=== PATIENT | female | born 1985 | race Caucasian/White ===

== ENCOUNTER 2017-04-21 01:23 | Inpatient (IN) | payer MEDICAID ==
[~2017-04-21] VITALS: Ht 162.6 cm; Wt 75.9 kg
--- NOTE | 2017-04-21 01:34 | NUR ---
RESP EVEN AND UNLABORED, DENIES CP, SENT TO LOBBY AWAITING ROOM.
--- NOTE | 2017-04-21 01:39 | NUR ---
PT PRESENTS TO THE ED WITH A C/O LLQ ABD PAIN X5 DAYS WITH ACCOMPANIED N/V. REPORTS THE PAIN IS 9/10 AND RADIATES TO THE L FLANK. DENIES ANY CONSTIPATION OR DIARRHEA AND OR DYSURIA. PT REPORTS A SUBJECTIVE FEVER AT HOME INTERMITTENTLY THAT IS CONTROLLED WITH MOTRIN, AFEBRILE AT THIS TIME. PAIN INCREASES WITH PALPATION AND AMBULATING. PT DENIES ANY CP, SOB, NO ACUTE DISTRESS NOTED AT THIS TIME. AWAITING MSE.
[2017-04-21 02:38] LABS: CALCIUM 8.8 mg/dL (8.5-10.1); CARBON DIOXIDE 26.9 mmol/L (21-32); CHLORIDE SERUM 102 mmol/L (98-107); CREATININE SERUM 0.8 mg/dL (0.6-1.0); GFR1 > 60 mL/min; GLUCOSE SERUM 102 mg/dL (74-106); POTASSIUM SERUM 3.5 mmol/L (3.5-5.1); SODIUM SERUM 136 mmol/L (136-145)
[2017-04-21 02:40] LABS: BASOPHIL % 1.2 % (0-2); PLATELET COUNT 266 x10^3mcL (130-400)
[2017-04-21 02:43] LABS: ALBUMIN 3.7 g/dL (3.4-5.0); ALKALINE PHOSPHATASE 104 U/L (46-116); ALT/SGPT 43 U/L (14-59); AST/SGOT 43 U/L (15-37); BILIRUBIN TOTAL 0.72 mg/dL (0.20-1.00); LIPASE 136 IU/L (73-393)
[2017-04-21 02:44] LABS: TOTAL PROTEIN, SERUM 8.3 g/dL (6.4-8.2)
--- NOTE | 2017-04-21 03:02 | NUR ---
RETURNED FROM CT. PT STABLE. VSS. ASSUMED CARE FROM NIRU GLEASON. KRANTHI.
[2017-04-21 03:31] LABS: UA SPECIFIC GRAVITY <=1.005 (1.005-1.035); microscopic required? YES; urine erythrocyte 1+ (NEGATIVE)
--- NOTE | 2017-04-21 03:46 | NUR ---
IV ABX INITIATED. NO ADR. PREP FOR ADMISSION. ANALGESIA GIVEN.
--- NOTE | 2017-04-21 04:05 | NUR ---
ADMITTING MD AT BS. PT W/SUDDEN ONSET NAUSEA AND VOMITING W/ PAIN TO ABDOMEN. WHILE DR. SMITH AT BS, PT W/ MARKED NAUSEA AND VOMITING W/ INCREASE IN ABD PAIN. PENDING ADMIT. PREP FOR ADMISSION. NASAL SWAB OBTAINED. TO MEDICATE FOR NAUSEA AND PAIN PRIOR TO ADMIT.
[2017-04-21 04:29] LABS: AMPHETAMINE QUAL UR NONE DETECTED (NEG <=1000)
[2017-04-21 04:31] LABS: FREE T4 0.96 ng/dL (0.76-1.46); FREE THYROXINE INDEX 2.6 ug/dL (1.4-4.5); T4(THYROXINE) 7.8 ug/dL (4.7-13.3)
[2017-04-21 04:32] LABS: PHOSPHOROUS 3.8 mg/dL (2.5-4.9); T3 TOTAL 0.96 ng/mL
[2017-04-21 04:33] LABS: MAGNESIUM 1.8 mg/dL (1.8-2.4)
[2017-04-21 05:02] VITALS: BP 102/61
--- NOTE | 2017-04-21 05:11 | NUR ---
RECIEVED PT FROM ER VIA [facility]. TELE #40, NSR. FAMILY MEMBER AT BEDSIDE. AOX4. [place] SPEAKING. LUNGS CLEAR AND UNLABORED ON RA. PULSES PALPABLE, NO EDEMA. BOWEL SOUNDS ACTIVE. DENIES PAIN AT THIS TIME. NS @ 100 ML/HR TO LEFT FA, NO REDNESS OR SWELLING. BED IN LOW POSITION, CALL LIGHT IN REACH. INSTRUCTED TO CALL FOR ASSISTANCE. WILL ENDORSE TO ONCOMING RN.
[2017-04-21 05:45] VITALS: BP 102/61; BP 125/64
--- NOTE | 2017-04-21 07:15 | NUR ---
PT WS ENDORSE TO ME THIS MORNING .AA/O X4, TELE 40 NSR. HR 64. LUXEMBOURGER SPK. BREATHING EVEN AND UNLABORED. NO RESP DISTRESS OR SOB NOTED. C/O N/V, MEDICATED PER EMAR. CALL LIGHT IN REACH. WILL CONTINUE PLAN OF CARE.
--- NOTE | 2017-04-21 09:02 | NUR ---
HEPLOCKED PT. CK LIST DONE. WAS TAKEN TO OR FOR PROCEDURE. PT BREATHING EVEN AND UNLABORED. NO RESP DISTRESS OR SOB NOTED.
[2017-04-21 09:39] VITALS: BP 107/63
--- NOTE | 2017-04-21 11:44 | NUR ---
PT BACK FROM OR. VS STABLE. BREATHING EVEN AND UNLABORED, NO RESP DISTRESS OR SOB NOTED. THREE BANDAIDS TO MIDDLE ABD, INTACT. ADVICE PT TO USE PILLOW WHEN SHE NEEDS TO COUGH. RECONNECTED IV LAC. PATENT AND INTACT. PT BY HER SIDE. CALLL LIGHT IN REACH. WILL CONTINUE PLAN OF CARE.
--- NOTE | 2017-04-21 12:35 | NUR ---
PT IS RESTING VERY COMFORTABLE. DENIES ANY ABD PAIN OR N/V AT THIS TIME. CALL LIGHT IN REACH. BY HER SIDE. WILL CONTINUE TO MONITOR PT PAIN .
[2017-04-21 13:51] VITALS: BP 111/63
--- NOTE | 2017-04-21 15:04 | NUR ---
PT C/O ABD PAIN 03/01. MEDICATED PER EMAR.
[2017-04-21 17:06] VITALS: BP 106/62
--- NOTE | 2017-04-21 17:36 | NUR ---
PT IS SITTING UP IN BED. DENIES ANY ABD PAIN AT THIS TIME. PT DID TOLERATED ONE CUP OF APPLE JUICE AND ONE CUP OF JELLO. DID ENCOURAGE PT TO TRY TO AMBULATE TOLERATED. PT AGREED SHE SOULD TRY. CALL LIGHT IN REACH. WILL CONTINUE PLAN OF CARE.
--- NOTE | 2017-04-21 18:32 | NUR ---
PT IS LAYING IN BED BREATHING EVEN AND UNLABORED. NO RESP DISTRESS OR SOB NOTED. PT IS C/O SOME ABD PAIN, WILL MEDICATED PER EMAR. IV TO THE LAC INTACT AND PATENT. WILL ENDORSE PT TO INCOMING RN.
--- NOTE | 2017-04-21 20:03 | NUR ---
PT CURRENTLY RESTING IN BED, NO ACUTE DISTRESS. A/O X4. TELE #40 SHOWING SINUS RHYTHM, DENIES CHEST PAIN. PULSES PALPABLE IN ALL EXTREMITIES, NO EDEMA NOTED. LUNG SOUNDS CTA BILATERALLY, DENIES SOB. BOWEL SOUNDS ACTIVE, LAST BM 04/20/17. VOIDING WELL. AMBULATORY. ABD BANDAID X3, CDI. DENIES PAIN AT THIS TIME. IV PATENT AND INTACT. BED IN LOWEST POSITION, SIDE RAILS UP X2, SCDS IN PLACE, CALL LIGHT WITHIN REACH. WILL CONTINUE TO MONITOR.
[2017-04-21 21:14] VITALS: BP 97/57
--- NOTE | 2017-04-21 23:54 | NUR ---
PT CURRENTLY RESTING IN BED, NO ACUTE DISTRESS. WILL CONTINUE TO MONITOR.
--- NOTE | 2017-04-22 05:41 | NUR ---
PT SLEPT PERIODICALLY THROUGHOUT NIGHT, NO ACUTE DISTRESS. ALL NEEDS MET AND ATTENDED TO. NO SIGNIFICANT CHANGES. IV PATENT AND INTACT. MEDICATED PAIN PER EMAR. BED IN LOWEST POSITION, SIDE RAILS UP X2, SCDS IN PLACE, CALL LIGHT WITHIN REACH. WILL ENDORSE CARE TO ONCOMING NURSE.
[2017-04-22 06:02] VITALS: BP 95/56
[2017-04-22 06:04] LABS: BASOPHIL % 0.2 % (0-2); PLATELET COUNT 235 x10^3mcL (130-400); RED CELL DISTRIBUTION WIDTH 13.8 % (11.5-14.5)
[2017-04-22 06:35] LABS: CALCIUM 8.5 mg/dL (8.5-10.1); CARBON DIOXIDE 25.9 mmol/L (21-32); CHLORIDE SERUM 103 mmol/L (98-107); CHOLESTEROL 195 mg/dL (<200); CHOLESTEROL/HDL RATIO 3.8; CREATININE SERUM 0.6 mg/dL (0.6-1.0); GFR1 > 60 mL/min; GLUCOSE SERUM 87 mg/dL (74-106); HDL CHOLESTEROL 51 mg/dL (40-60); MAGNESIUM 2.1 mg/dL (1.8-2.4); PHOSPHOROUS 3.6 mg/dL (2.5-4.9); POTASSIUM SERUM 3.6 mmol/L (3.5-5.1); SODIUM SERUM 139 mmol/L (136-145); TRIGLYCERIDES 67 mg/dL (<150)
--- NOTE | 2017-04-22 07:46 | NUR ---
RECEIVED PT IN BED, A/A/O X 4, CALM, COOPERATIVE. ON TELE # 40, NSR, HR 67. NO RESPIRATORY DISTRESS, PAIN, OR DISCOMFORT AT THIS TIME. ABD SOFT, ROUND, NON-TENDER, NORMOACTIVE BOWEL SOUNDS X 4 QUADS, LAST BM 04/20/17. VOIDS FREELY, NO DYSURIA. HAS 3 ABD SURGICAL WOUNDS COVERED WITH BAND-AIDS, CDI. IV SITE TO LAC CDI, RUNNING NS 70 ML/HR. SIDE RAILS UP X 2, BED IN LOW POSITION, CALL LIGHT WITHIN REACH. WILL CONTINUE TO MONITOR.
--- NOTE | 2017-04-22 08:05 | NUR ---
DR TAYLOR, RESIDENTS, CHARGE NURSE, AND ASSIGNED NURSE CAME IN TO SEE PT; DISCUSSED PLAN OF CARE FOR TODAY. ALL QUESTIONS WERE ANSWERED. PT VERBALIZED UNDERSTANDING.
[2017-04-22 09:17] VITALS: BP 91/50
--- NOTE | 2017-04-22 10:15 | NUR ---
PT IN BED, WATCHING TV, FAMILY MEMBER BY BEDSIDE. NO RESPIRATORY DISTRESS, PAIN, OR DISCOMFORT NOTED. WILL CONTINUE TO MONITOR.
[2017-04-22 11:31] VITALS: BP 99/51
--- NOTE | 2017-04-22 12:30 | NUR ---
PT IN BED, EATING HER LUNCH. PT STATES THAT SHE DOES NOT HAVE ANY PAIN OR DISCOMFORT AT THIS TIME. WILL CONTINUE TO MONITOR.
--- NOTE | 2017-04-22 14:45 | NUR ---
PT AMBULATED ALONG THE HALLWAY FOR ABOUT 200 FEET. NO RESPIRATORY DISTRESS, PAIN, OR DISCOMFORT NOTED. GAIT AND BALANCE ARE UNIMPAIRED. WILL CONTINUE TO MONITOR.
--- NOTE | 2017-04-22 16:54 | NUR ---
PT IN BED, RESTING COMFORTABLY. NO RESPIRATORY DISTRESS, PAIN, OR DISCOMFORT NOTED. WILL CONTINUE TO MONITOR.
[2017-04-22 17:27] VITALS: BP 91/46
--- NOTE | 2017-04-22 17:58 | NUR ---
PT AMBULATED THE HALLWAY FOR ABOUT 200 FT, ACCOMPANIED BY FAMILY MEMBER. NO RESPIRATORY DISTRESS, PAIN, OR DISCOMFORT NOTED. NO GAIT OR BALANCE IMPAIRMENT. WILL ENDORSE TO NOC SHIFT.
--- NOTE | 2017-04-22 20:01 | NUR ---
ALERT AND VERBALLY RESPONISVE. ABLE TO MAKE NEEDS KNOWN. SKIN WARM AND DRY TO TOUCH. RESPIRATION EVEN AND UNLABORED. DENIES ANY PAIN/DISCOMFORT AT THIS TIME. FAMILY AT BEDSIDE VERY SUPPORTIVE OF ALEXIENT'S CURRENT PLAN OF CARE. WILL CONTINUE TO MONITOR.
[2017-04-22 21:09] VITALS: BP 112/72
--- NOTE | 2017-04-23 00:10 | NUR ---
CONTINUES ON ATB IVPB ORDERED. NO ADVERSE REACTION NOTED. MAINTAINED ON IVF NS AT 40CC/HR ORDERED TOLERATING WELL VIA PERIPHERAL LINE AT THE LAC AREA. NO S/S OF INFILTRATION AT THE IV SITE. WILL CONTINUE TO MONITOR.
[2017-04-23 05:31] VITALS: BP 100/55
[2017-04-23 06:21] LABS: CALCIUM 8.1 mg/dL (8.5-10.1); CARBON DIOXIDE 30.7 mmol/L (21-32); CHLORIDE SERUM 104 mmol/L (98-107); CREATININE SERUM 0.6 mg/dL (0.6-1.0); GFR1 > 60 mL/min; GLUCOSE SERUM 90 mg/dL (74-106); POTASSIUM SERUM 3.8 mmol/L (3.5-5.1); SODIUM SERUM 140 mmol/L (136-145)
[2017-04-23 06:22] LABS: BASOPHIL % 0.3 % (0-2); PLATELET COUNT 217 x10^3mcL (130-400); RED CELL DISTRIBUTION WIDTH 13.7 % (11.5-14.5)
--- NOTE | 2017-04-23 06:33 | NUR ---
TOLERATED ORAL FLUIDS , NO NUASEA/VOMTING NOTED. ATB IVPB GIVEN ORDERED. NO ADVERSE REACTION NOTED. NO BM THIS SHIFT, BUT PASSED GAS X5. ALL NEEDS ATTENDED.
--- NOTE | 2017-04-23 07:20 | NUR ---
AAO X4.DENIES ANY PAIN/DISCOMFORT AT THE MOMENT.LUNGS CLEAR.ON SR ON THE MONITOR.IVF NS GOING AT 40 ML/HR INFUSING WELL.ABD'L INCISSION X 3 WITH PEDRO LUIS CDI.S/P LAP APPY ON 04/21.CALL LIGHT WITHIN REACH.INSTRUCTED TO CALL FOR ANY PAIN/DISCOMFORT.USE INCENTIVE SPIROMETER AND AMBULATE OFTEN.PT COOPERATIVE WITH THE PLAN OF CARE.
--- NOTE | 2017-04-23 08:21 | NUR ---
AND MEDICINE TEAM AT BEDSIDE.INFORMED PT ABOUT THE PLAN OF CARE.WILL GO HOME TODAY.WILL GIVE STOOL SOFTENER AND PAIN MEDS TO GO HOME WITH.
[2017-04-23 08:54] VITALS: BP 129/78
[2017-04-23 09:00] VITALS: BP 98/46
[2017-04-23] MEDS ORDERED: APAP/HYDROCODON1 T13 PO (11:56)
[2017-04-23] MEDS ORDERED: LEVAQUIN750 MG PO (12:04)
[2017-04-23] MEDS ORDERED: LAC PO (12:05)
[2017-04-23 14:10] VITALS: BP 92/41
[2017-04-23 14:36] VITALS: BP 92/41
--- NOTE | 2017-04-23 15:17 | NUR ---
PT D/C TO HOME.IV AND MONITOR D/C'D.RX AND D/C INSTRUCTION GIVEN PT VERBALIZES UNDERSTANDING.WENT DOWN VIA WHEECHAIR ACCOMPANIED BY AND STARTING GATE DRIVER.TOOK PICTURES OF THE ABDOMINAL INCISSION.
== END 2017-04-23 15:15 | disposition home or self-care (01) | DRG 225 ==
LOC: ED 01:23 → DU 03:48
PROVIDERS: Emergency Medicine; Surgery; ADMIT Family Medicine
PROC: 0DTJ4ZZ Resection of Appendix, Percutaneous Endoscopic Approach (ICD-10-PCS; principal; 2017-04-21 09:40)
DX: K35.80 Unspecified acute appendicitis (principal); N39.0 Urinary tract infection, site not specified; R31.9 Hematuria, unspecified; R74.0 Nonspecific elevation of levels of transaminase and lactic acid dehydrogenase [LDH]; Z68.26 Body mass index [BMI] 26.0-26.9, adult
CPT/HCPCS: 83880; 84439; 94150; J0330; J0696; J1170; J1885; J2250; J2270; J2405; J2543; J2704; J3010; J3490; J7030; J7120; Q0092

== ENCOUNTER 2017-10-16 19:17 | Emergency (ER) | payer MEDICAID ==
[~2017-10-16] VITALS: Ht 162.6 cm; Wt 78.5 kg
[~2017-10-16 19:17] MED LIST: APAP/HYDROCODON1 T13 PO; LAC PO; LEVAQUIN750 MG PO
[2017-10-16 20:19] LABS: BASOPHIL % 0.4 % (0-2); PLATELET COUNT 226 x10^3mcL (130-400); RED CELL DISTRIBUTION WIDTH 14.5 % (11.5-14.5)
[2017-10-16 20:23] LABS: CALCIUM 8.3 mg/dL (8.5-10.1); CARBON DIOXIDE 27.5 mmol/L (21-32); CHLORIDE SERUM 106 mmol/L (98-107); CREATININE SERUM 0.6 mg/dL (0.6-1.0); GFR1 > 60 mL/min; GLUCOSE SERUM 90 mg/dL (74-106); POTASSIUM SERUM 3.9 mmol/L (3.5-5.1); SODIUM SERUM 137 mmol/L (136-145)
[2017-10-16 20:26] LABS: UA SPECIFIC GRAVITY >=1.030 (1.005-1.035); microscopic required? YES; urine erythrocyte 1+ (NEGATIVE)
[2017-10-16 20:28] LABS: ALBUMIN 3.6 g/dL (3.4-5.0); ALKALINE PHOSPHATASE 99 U/L (46-116); ALT/SGPT 48 U/L (14-59); AST/SGOT 33 U/L (15-37); BILIRUBIN TOTAL 0.5 mg/dL (0.20-1.00); LIPASE 142 IU/L (73-393); TOTAL PROTEIN, SERUM 7.4 g/dL (6.4-8.2)
[2017-10-16 21:43] VITALS: BP 111/73
== END 2017-10-16 21:43 | disposition home or self-care (01) ==
LOC: ED 19:17
PROVIDERS: Emergency Medicine
DX: S39.012A Strain of muscle, fascia and tendon of lower back, initial encounter (principal); S29.011A Strain of muscle and tendon of front wall of thorax, initial encounter; Z90.49 Acquired absence of other specified parts of digestive tract; X58.XXXA Exposure to other specified factors, initial encounter; Y93.89 Activity, other specified; Y92.89 Other specified places as the place of occurrence of the external cause; Y99.8 Other external cause status
CPT/HCPCS: 36415; J1885; Q0092; Q0162

== ENCOUNTER 2018-04-12 18:42 | Emergency (ER) | payer MEDICAID ==
[~2018-04-12] VITALS: Ht 162.6 cm; Wt 79.4 kg
[2018-04-12 18:51] VITALS: Ht 162.6 cm; Wt 79.4 kg
[2018-04-12 20:12] LABS: BASOPHIL % 0.5 % (0-2); PLATELET COUNT 256 x10^3mcL (130-400); RED CELL DISTRIBUTION WIDTH 13.4 % (11.5-14.5)
[2018-04-12 20:17] LABS: CALCIUM 8.5 mg/dL (8.5-10.1); CARBON DIOXIDE 26.4 mmol/L (21-32); CHLORIDE SERUM 102 mmol/L (98-107); CREATININE SERUM 0.7 mg/dL (0.6-1.0); GFR1 > 60 mL/min; GLUCOSE SERUM 91 mg/dL (74-106); POTASSIUM SERUM 3.4 mmol/L (3.5-5.1); SODIUM SERUM 135 mmol/L (136-145)
[2018-04-12 20:22] LABS: ALBUMIN 3.6 g/dL (3.4-5.0); ALKALINE PHOSPHATASE 127 U/L (46-116); ALT/SGPT 128 U/L (14-59); AST/SGOT 94 U/L (15-37); BILIRUBIN TOTAL 0.5 mg/dL (0.20-1.00); LIPASE 172 IU/L (73-393); TOTAL PROTEIN, SERUM 8.2 g/dL (6.4-8.2)
[2018-04-12 21:58] VITALS: BP 105/56
== END 2018-04-12 22:26 | disposition home or self-care (01) ==
LOC: ED 18:42
PROVIDERS: Emergency Medicine
DX: R10.84 Generalized abdominal pain (principal); R74.8 Abnormal levels of other serum enzymes; Z90.89 Acquired absence of other organs; Z98.890 Other specified postprocedural states
CPT/HCPCS: J1885; J2405; J7030; Q0092